=== PATIENT | female | born 1975 | race Caucasian/White ===

== ENCOUNTER 2019-04-10 17:21 | Emergency (ER) | payer BC, OTHER ==
[2019-04-10 18:08] VITALS: BP 135/78
--- NOTE | 2019-04-10 18:46 | ED ---
Upper Extremity Pain - HPI Summary HPI Summary: 44 yr old with right hand pain. The patient had an MRI with IV contrast. They had trouble starting the IV and tried at first just above her right wrist, and then they put the line in her right hand dorsum. She states the IV was taken out and there has been some bruising to back of the hand with about 1cm of vein that is prominent in the back of same hand. No fever or chills. no SOB> No forearm or arm swelling. She was getting a work up for a breast finding on a screening exam. Symptoms were worse earlier with typing on keyboard. presently little to no discomfort. - History of Current Complaint Chief Complaint: UCUpperExtremity Stated Complaint: RIGHT HAND PAIN Time Seen by Provider: 04/10/19 18:30 Hx Last Menstrual Period: 2000 - Allergies/Home Medications Allergies/Adverse Reactions: Allergies Allergy/AdvReac Type Severity Reaction Status Date / Time MS Latex [Latex] Allergy Severe rash, Verified 11/04/15 19:13 can't breath MS Clarithromycin Allergy Intermediate shakey Verified 11/04/15 19:13 [From Biaxin] MS Penicillin G Allergy Intermediate Rash Verified 11/04/15 19:13 [Penicillin G] MS Erythromycin Allergy Unknown Verified 11/04/15 19:13 [Erythromycin] Reaction Details Home Medications: Home Medications Cholecalciferol TAB* [Vitamin D TAB*] 1,000 unit PO DAILY 04/10/19 [History Confirmed 04/10/19] Fexofenadine/Pseudoephedrine [Avelina-D 24 Hour Tablet] 1 each PO BEDTIME [History Confirmed 04/10/19] Montelukast Sodium TAB* [Singulair TAB*] 10 mg PO BEDTIME 04/10/19 [History Confirmed 04/10/19] PMH/Surg Hx/FS Hx/Imm Hx Respiratory History: Reports: Hx Asthma - Surgical History Surgery Procedure, Year, and Place: hysterectomy 2000 Infectious Disease History: No Infectious Disease History: Denies: Traveled Outside the [place] in Last 30 Days - Family History Known Family History: Positive: Hypertension, Diabetes - father - Social History Occupation: Employed Full-time Alcohol Use: Occasionally Substance Use Type: Reports: None Smoking Status (MU): Light Every Day Tobacco Smoker Type: Cigarettes Amount Used/How Often: 3-4 daily Length of Time of Smoking/Using Tobacco: 10+ yrs Have You Smoked in the Last Year: Yes Review of Systems Constitutional: Negative Negative: Fever, Chills Positive: Other - mild discomfort dorsum of right hand Positive: Bruising All Other Systems Reviewed And Are Negative: Yes Physical Exam Triage Information Reviewed: Yes Vital Signs On Initial Exam: Initial Vitals Temp Pulse Resp BP Pulse Ox 99.9 F 85 16 135/78 100 04/10/19 18:04 04/10/19 18:04 04/10/19 18:04 04/10/19 18:04 04/10/19 18:04 Vital Signs Reviewed: Yes Appearance: Positive: Well-Appearing, No Pain Distress Skin: Positive: Warm, Skin Color Reflects Adequate Perfusion, Other - bruise back of right hand Head/Face: Positive: Normal Head/Face Inspection Eyes: Positive: Normal ENT: Positive: Normal ENT inspection Neck: Positive: Nontender Respiratory/Lung Sounds: Positive: Clear to Auscultation, Breath Sounds Present Cardiovascular: Positive: RRR. Negative: Murmur Abdomen Description: Negative: Distended Musculoskeletal: Positive: Strength/ROM Intact, Other - right hand is symmetric in size to the left, and left and right arm and forearms are symmetric. No tenderness to either arm or forearm. A little tender over the dorsum of right hand only at the site where IV was placed and over about 1 cm of vein that is only slightly prominent. No redness or cellulitis. Neurological: Positive: Alert, Oriented to Person Place, Time, Normal Gait, Speech Normal Psychiatric: Positive: Normal Diagnostics - Vital Signs Vital Signs Temp Pulse Resp BP Pulse Ox 04/10/19 18:04 99.9 F 85 16 135/78 100 - Laboratory Lab Statement: Any lab studies that have been ordered have been reviewed, and results considered in the medical decision making process. Course/Dx - Course Course Of Treatment: 44 yr old with bruise and at most a minimal localized phlebitis on exam. recommend cold compresses, motrin which she has and follow up with PMD - Diagnoses Provider Diagnoses: Phlebitis after infusion Discharge ED - Sign-Out/Discharge Documenting (check all that apply): Patient Departure All imaging exams completed and their final reports reviewed: No Studies - Discharge Plan Condition: Good Disposition: HOME Patient Education Materials: Phlebitis (ED) Referrals: Evette Sahni MD [Primary Care Provider] - 2 Days - Billing Disposition and Condition Condition: GOOD Disposition: Home
== END 2019-04-10 18:49 | disposition home or self-care (01) ==
LOC: UCCORT 17:21
DX: T81.72XA Complication of vein following a procedure, not elsewhere classified, initial encounter (principal); I80.8 Phlebitis and thrombophlebitis of other sites; Y84.8 Other medical procedures as the cause of abnormal reaction of the patient, or of later complication, without mention of misadventure at the time of the procedure; Y92.239 Unspecified place in hospital as the place of occurrence of the external cause; Z88.0 Allergy status to penicillin; Z88.1 Allergy status to other antibiotic agents; F17.210 Nicotine dependence, cigarettes, uncomplicated
CPT/HCPCS: 99201; G0463